=== PATIENT | male | born 1995 | race Caucasian/White ===

== ENCOUNTER 2018-12-20 21:53 | Emergency (ER) | payer OTHER, BC ==
[2018-12-20 22:18] VITALS: RESP 18; BMI 24.3
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
[2018-12-21 00:31] VITALS: O2SAT 100
[2018-12-21 00:55] VITALS: BP 120/68; PULSE 67; TEMP 98.2
== END 2018-12-21 00:50 | disposition home or self-care (01) ==
LOC: ED 21:53
DX: M54.9 Dorsalgia, unspecified (principal)
CPT/HCPCS: 96372; 99284; J1885